=== PATIENT | male | born 1935 | race Caucasian/White ===

== ENCOUNTER → 2024-02-08 | Outpatient (CLI) | payer MEDICARE, SELFPAY ==
--- NOTE | 2024-02-08 13:09 | CT_ITS ---
STUDY: CT ABDOMEN AND PELVIS WITH AND WITHOUT CONTRAST REASON FOR EXAM: Male, 88 years old. HEMATURIA RADIATION DOSAGE (If Supplied By Facility): CTDIvol = ( 26.07 ) mGy, DLP = ( 3759.71 ) mGycm TECHNIQUE: Transaxial images were obtained from the dome of the diaphragm to the symphysis pubis without oral contrast. IV 100mL Isovue-300 was administered. Sagittal and coronal images were reconstructed. Individualized dose optimization techniques were used for this CT. COMPARISON: None. FINDINGS: Increased linear markings in the lingular segment of the left upper lobe suggestive of scarring. Coronary artery calcification. There is decreased attenuation of the liver consistent with steatosis. There are surgical clips in the gallbladder fossa consistent with a prior cholecystectomy. Normal spleen. Normal pancreas. Normal bilateral adrenal glands. Normal right kidney. Normal left kidney. Normal visualized stomach. Normal small intestine. Normal colon. The appendix is visualized and appears normal. There is diffuse atherosclerotic calcification of the abdominal aorta and its major visceral branches, without a demonstrated aneurysm. Normal inferior vena cava. Normal retroperitoneum. There is a 1.5 cm x 1 cm spiculated calculus at the base of the bladder on the right side. There is diffuse bladder wall thickening. Diffuse heterogeneous enlargement of the prostate with indentation of the bladder base. The prostate measures 5.7 cm x 6.7 cm. There is a small umbilical hernia containing fat. There are degenerative changes of the visualized lumbar spine. The general changes of the sacroiliac joints bilaterally. CT/CT Abd/Pelvis W/WO Contrast IMPRESSION: Fatty infiltration of the liver. Status post cholecystectomy. 1.5 cm x 1 cm spiculated focus at the base of the bladder on the right side. Diffuse bladder wall thickening. Diffuse heterogeneous enlargement of the prostate with the indentation at the bladder base. Calcifications are seen in the prostate. Electronically Signed: Asaf Bennett MD at 14:21 EDT ,
[2024-02-08 13:35] LABS: CREATININE FINGERSTICK 1.1 mg/dL (0.70-1.30); EGFR FINGERSTICK > 60.0000 mL/min (>60)
== END | disposition home or self-care (01) ==
LOC: CT 13:08
PROVIDERS: PCP Family Medicine; Referring Provider Urology; Visit Provider Urology
DX: R31.0 Gross hematuria (principal)
CPT/HCPCS: 74178; Q9967

== ENCOUNTER 2024-03-26 09:39 | Day surgery (SDC) | payer MEDICARE, SELFPAY ==
[2024-03-26] VITALS (10 sets, daily range): BP systolic 122–167; BP diastolic 44–58; PULSE 58–78; RESP 14–18; TEMP 36.3–36.6; O2SAT 93–99; BMI 31.9
[2024-03-26] MEDS: Lactated Ringers 1,000 ML 15 ML IV (10:11)
[2024-03-26 10:32] LABS: Bedside Glucose 183 mg/dL (74-106)
--- NOTE | 2024-03-26 10:51 | PRE.ANES_ITS ---
ASA Classification* ASA Classification ASA Classification: 3 Assessment & Plan Anesthesia* Anesthesia Assessment Anesthesia Assessment: Discussed sedation and/or anesthesia options, risks, benefits, and alternatives with patient/parents/legal guardian. Questions invited. The patient/parents/legal guardian/POA seems to understand and agrees to proceed with anesthesia plan. Reviewed the physical assessment, medical history, allergy history and patient home medications list prior to surgery/procedure/anesthetic and documented any changes. Performed airway and anesthesia risk assessments. 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 When Was Last Pacemaker Check QUESTION #4 FULL TEXT: You/Your Family Experience fever (hyperthermia) with Anesthesia Last Oral Intake Last Oral intake: Last Oral Intake NPO since 20:00 03/26/24 10:05 Meds taken in AM with sips of Yes 03/26/24 10:05 water? Meds patient instructed to amlodipine, lisinopril 03/26/24 10:05 take am of surgery PONV PONV - veneer jointer: PONV - veneer jointer Female No 03/21/24 10:55 HX of Motion Sickness No 03/21/24 10:55 HX of N/V After Surgery No 03/21/24 10:55 Non-Smoker Yes 03/21/24 10:55 Duration of Surgery greater Yes 03/21/24 10:55 than 60 minutes Number of Risk Factors 2 03/21/24 10:55 PONV Score Moderate Risk 03/21/24 10:55 Height & Weight Height & Weight: Anesthesia: Height & Weight Height 1.78 m 03/26/24 10:05 Weight: 101 kg 03/26/24 10:05 Body Mass Index (BMI) 31.9 03/26/24 10:05 Respiratory Assessment Respiratory Assessment - veneer jointer: Respiratory Tract Infection Hx - veneer jointer Hx Respiratory Tract Infection No 03/21/24 10:55 STOP Sleep Apnea STOP Sleep Apnea - veneer jointer: STOP Sleep Apnea - veneer jointer Hx Hypertension Yes: CONTROLLED WITH MED 03/21/24 10:55 Hx Sleep Apnea No 03/21/24 10:55 CPAP BIPAP Do you snore loudly (louder No 03/21/24 10:55 than talking or can be heard Do you often feel tired/ No 03/21/24 10:55 fatigued/ sleepy during daytime? Has anyone observed you stop No 03/21/24 10:55 breathing during sleep? STOP Results Negative 03/21/24 10:55 QUESTION #5 FULL TEXT : Do you snore loudly (louder than talking or can be heard through closed doors)? 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 Specify any problems Hx of Preganancy in last 3 N/A 03/21/24 10:55 Months Nurse Filling Out Transfusion DSCHRIBER 03/21/24 10:55 & Questions: Date: 03/21/24 03/21/24 10:55 Time: 10:57 03/21/24 10:55 Patient unable to answer at this time (ie. confused, unrespo /Reproduction History /Reproductive History - veneer jointer: /Reproductive Hx- veneer jointer Hx Now No 03/21/24 10:55 Gestational Age (in weeks): EDC: Hx Hx Para Hx Section SAB No 03/21/24 10:55 Active Medications Active Medications: Current Medications Generic Name Dose Route Start Last Admin Trade Name Marco A PRN Reason Stop Dose Admin Cefazolin Sodium 2 gm/ Sodium 110 mls @ 150 mls/hr 03/26/24 11:40 Chloride IV 03/26/24 12:23 PREOP ONE Lactated Ringer's 1,000 mls @ 15 mls/hr 03/26/24 10:00 03/26/24 10:11 IV 15 mls/hr .Q48H DANIELA Administration Anesthesia Focused Assessment* Temperature: 97.9 F Pulse Rate: 78 Blood Pressure: 157/57 Respiratory Rate: 18 Pulse Ox: 99 Airway Assessment Mouth opens (cm): 3 Mallampati Score: II Focused Labs Anesthesia Preop lab: CBC CHEMISTRY COAG Review of Systems (Anesthesia) ROS Narrative System reviewed and no additional complaints, except as documented. [facility] Medical History Wears hearing aid Wears glasses Alcohol use Diabetes Prostate disease High cholesterol Dietary restriction Shortness of breath on exertion Former smoker Cardiology follow-up encounter Hypertension CAD (coronary artery disease) Home Medications ?Medication ?Instructions ?Recorded ?Last Taken ?Type amlodipine 5 mg tablet 5 mg PO DAILY 03/21/24 03/26/24 History aspirin 81 mg tablet,delayed 81 mg PO DAILY 03/21/24 03/20/24 History release (Adult Aspirin Regimen) atorvastatin 80 mg tablet 80 mg PO QHS 03/21/24 03/25/24 History cyanocobalamin (vitamin B-12) 1,000 mcg PO DAILY 03/21/24 03/25/24 History 1,000 mcg tablet,extended release (Vitamin B-12 ER) dutasteride 0.5 mg capsule 0.5 mg PO DAILY 03/21/24 03/25/24 History glipizide 10 mg tablet 10 mg PO DAILY 03/21/24 03/25/24 History hydrochlorothiazide 25 mg tablet 25 mg PO DAILY 03/21/24 03/25/24 History lisinopril 40 mg tablet 40 mg PO BID 03/21/24 03/26/24 History pioglitazone 15 mg tablet 15 mg PO DAILY 03/21/24 03/25/24 History rivaroxaban 20 mg tablet (Xarelto) 20 mg PO QHS 03/21/24 03/20/24 History sitagliptin phosphate 50 1 tab PO BID 03/21/24 03/25/24 History mg-metformin 1,000 mg tablet (Janumet) tamsulosin 0.4 mg capsule 0.4 mg PO QHS 03/21/24 03/25/24 History Allergy/AdvReac Type Severity Reaction Status Date / Time No Known Allergies Allergy Verified 03/26/24 10:03 Surgical History History of cardiac catheterization Hx of right cataract extraction Hx of left cataract extraction Hx of heart bypass surgery History of umbilical hernia repair Hx of cholecystectomy Social History Smoking Status: Former smoker Addt'l Information Additional Findings: cabg hx, afib hx
[2024-03-26] MEDS: Cefazolin 2 GM in 0.9% Normal Saline (100mL Bag) 100 ML IV (12:12)
--- NOTE | 2024-03-26 12:55 | PCM.HP.STD ---
HPI - General General Date of Service: 03/26/24 Chief Complaint: Large bladder stone HPI Narrative RAY QUINN, is a 88 M who presents to laser large bladder stone he has BPH and obstruction was to start him on medical therapy with Flomax and Proscar he will need to go home with a catheter and follow-up in a week to get catheter removed [facility] Medical History Wears hearing aid Wears glasses Alcohol use Diabetes Prostate disease High cholesterol Dietary restriction Shortness of breath on exertion Former smoker Cardiology follow-up encounter Hypertension CAD (coronary artery disease) Home Medications ?Medication ?Instructions ?Recorded ?Last Taken ?Type amlodipine 5 mg tablet 5 mg PO DAILY 03/21/24 03/26/24 History aspirin 81 mg tablet,delayed 81 mg PO DAILY 03/21/24 03/20/24 History release (Adult Aspirin Regimen) atorvastatin 80 mg tablet 80 mg PO QHS 03/21/24 03/25/24 History cyanocobalamin (vitamin B-12) 1,000 mcg PO DAILY 03/21/24 03/25/24 History 1,000 mcg tablet,extended release (Vitamin B-12 ER) dutasteride 0.5 mg capsule 0.5 mg PO DAILY 03/21/24 03/25/24 History glipizide 10 mg tablet 10 mg PO DAILY 03/21/24 03/25/24 History hydrochlorothiazide 25 mg tablet 25 mg PO DAILY 03/21/24 03/25/24 History lisinopril 40 mg tablet 40 mg PO BID 03/21/24 03/26/24 History pioglitazone 15 mg tablet 15 mg PO DAILY 03/21/24 03/25/24 History rivaroxaban 20 mg tablet (Xarelto) 20 mg PO QHS 03/21/24 03/20/24 History sitagliptin phosphate 50 1 tab PO BID 03/21/24 03/25/24 History mg-metformin 1,000 mg tablet (Janumet) tamsulosin 0.4 mg capsule 0.4 mg PO QHS 03/21/24 03/25/24 History ciprofloxacin HCl 500 mg tablet 500 mg PO BID #6 tabs 03/26/24 Unknown Rx (Cipro) ibuprofen 400 mg tablet 400 mg PO Q6H PRN fever or pain 03/26/24 Unknown Rx #20 tabs Allergy/AdvReac Type Severity Reaction Status Date / Time No Known Allergies Allergy Verified 03/26/24 10:03 Surgical History History of cardiac catheterization Hx of right cataract extraction Hx of left cataract extraction Hx of heart bypass surgery History of umbilical hernia repair Hx of cholecystectomy Social History Smoking Status: Former smoker Vital Signs Vital Signs Vital Signs: 03/26/24 10:05 03/26/24 10:05 03/26/24 10:52 Temperature 97.9 F 97.9 F Temperature Source Temporal Pulse Rate 78 78 Respiratory Rate 18 18 Respiratory Pattern Normal Blood Pressure 157/57 H 157/57 H Blood Pressure Mean 90 Blood Pressure Source Monitor Blood Pressure Position Semi-Fowlers Blood Pressure Location Right Arm Pulse Ox 99 99 Oxygen Delivery Method Room Air Weight Weight: 101 kg Body Mass Index (BMI) 31.9 Results Lab / Micro Data Labs: Laboratory Results - last 24 hr 03/26/24 10:12: POC Glucose 183 H
--- NOTE | 2024-03-26 12:56 | OP.PCM_ITS ---
Report of Operation Date of Procedure: 03/26/24 Pre-Operative Diagnosis: BPH with obstruction large bladder stone Post-Operative Diagnosis: The same Surgery/Procedure Performed:: Cystolitholapaxy of a large bladder stone Description of Surgical Findings:: 88-year-old male was found to have a very large prostate and obstruction restart on the medical therapy with Flomax and Proscar he understand this possibly may need a TURP down the road poses a large stone in the bladder and plan to laser out the stone as it is causing him frequency and urgency symptoms. Patient was taken back to the operating room at this with induction of anesthes ia he was placed in dorsolithotomy position. Penis and testicles prepped and draped in usual sterile fashion in the bladder with a 21 [place] rigid cystourethroscope I got to the verumontanum and a nice channel no strictures or scar tissue along the channel past the prostate had a very large prostate large median lobe inside the bladder I then identified a large stone in the bladder I then used a 900 ?m laser fiber laser the stone little tiny pieces using as careful as possible not to irritate the bladder but the stone was so big as as lasering it because a lot of bleeding from the bladder neck so at the end of lasering the bladder and get all the stones put in the catheter he will to go home with a catheter let the to control the bleeding and follow-up next week to have the catheter removed. Surgeon: Gerald Verduzco Type of Anesthesia: General Drains: cornelius Estimated Blood Loss (mL): 0 Admit VTE Documentation VTE Present on Admission: No VTE Mechan Device Prophylaxis: SCD's VTE Pharm Prophylaxis ordered?: No
--- NOTE | 2024-03-26 12:56 | PCM.DC ---
Discharge Instructions Diet Discharge Diet: No restrictions Activity Discharge Activity: Return to Normal Activity Dressing / Incision Catheter: Cornelius to leg bag and Cornelius to large bag Drain: [place] Follow Up Care Please Follow Up With: Gerald Verduzco MD When: next week to remove cornelius Test Results: Test results from this visit will be discussed in further detail at your follow-up appointment, if applicable. Discharge Plan Admission Primary Reason for Your Visit: Laser bladder stone Attending Provider: Gerald Verduzco Primary Care Provider: Keshav Hernández Instructions Print Language: Rw[place] Discharge Orders/Prescriptions Prescriptions: New ciprofloxacin HCl [Cipro] 500 mg tablet 500 mg PO BID Qty: 6 0RF ibuprofen 400 mg tablet 400 mg PO Q6H PRN (Reason: fever or pain) Qty: 20 0RF Continued amlodipine 5 mg tablet 5 mg PO DAILY atorvastatin 80 mg tablet 80 mg PO QHS glipizide 10 mg tablet 10 mg PO DAILY hydrochlorothiazide 25 mg tablet 25 mg PO DAILY lisinopril 40 mg tablet 40 mg PO BID pioglitazone 15 mg tablet 15 mg PO DAILY Janumet 50-1,000 mg tablet 1 tab PO BID cyanocobalamin (vitamin B-12) [Vitamin B-12] 1,000 mcg tablet extended release 1,000 mcg PO DAILY dutasteride 0.5 mg capsule 0.5 mg PO DAILY tamsulosin 0.4 mg capsule 0.4 mg PO QHS Held Xarelto 20 mg tablet 20 mg PO QHS Hold Instructions: Resume on 04/02/24. aspirin [Adult Aspirin Regimen] 81 mg tablet,delayed release (DR/EC) 81 mg PO DAILY Hold Instructions: Resume on 04/02/24. Referrals / Follow Up: Keshav Hernández MD [Primary Care Provider] - Disposition Disposition (needs filled in before D/C Order can be placed): Home, Self Care
--- NOTE | 2024-03-26 13:04 | PCM.POST.ANE ---
Anesthesia: Postop Eval I Current Vital Signs Temperature: 97.4 F Pulse Rate: 63 Blood Pressure: 140/52 Respiratory Rate: 16 Pulse Ox: 95 Oxygen Delivery Method: Room Air Assessment Airway patent: Yes Spontaneous unlabored respirations: Yes Mental status: Awake and Calm nausea: No Vomiting: No Anesthesia Complication: No Fluid Hydration Crystalloid volume administer (ml): 8,003 Total IV fluid infused: 8,003 Progress Note Anesthesia document: Postop Eval 1 completed: Yes
[2024-03-26 13:23] LABS: Bedside Glucose 154 mg/dL (74-106)
--- NOTE | 2024-03-26 13:46 | POSTOPAN2_ITS ---
Anesthesia Postop Eval I Sum Postop Eval Completion status Anesthesia document: Postop Eval 1 completed: Yes Anesthesia Postop Eval I Summary Anesthesia Postop Eval I Summary: Anesthesia Postop Eval I: Assessment Summary Airway patent Yes 03/26/24 13:05 COPIER REPAIR TECHNICIAN.[email or web address] Spontaneous unlabored Yes 03/26/24 13:05 COPIER REPAIR TECHNICIAN.SCHR respirations Mental status Awake,Calm 03/26/24 13:05 COPIER REPAIR TECHNICIAN.SCHR nausea No 03/26/24 13:05 COPIER REPAIR TECHNICIAN.SCHR Vomiting No 03/26/24 13:05 COPIER REPAIR TECHNICIAN.[facility] Anesthesia Postop Eval I: Fluid Summary Crystalloid volume administer 8,003 03/26/24 13:05 COPIER REPAIR TECHNICIAN.SCHR (ml) Colloids volume administered ( ml) Blood Product volume administered (ml) Total IV fluid infused 8,003 03/26/24 13:05 COPIER REPAIR TECHNICIAN.[facility] Anesthesia Postop Eval I: Summary Notes Anesthesia Complication No 03/26/24 13:05 COPIER REPAIR TECHNICIAN.[facility] Anesthesia Complication Comment: Post-operative progress note Anesthesia: Postop Eval II Evaluation Mental status: Awake Pain Level: 6 nausea: No Vomiting: No Progress Note Post-operative progress note: somewhat painful, anxious added ativan for anxiety Complications Anesthesia Complication: No
--- NOTE | 2024-03-26 13:46 | PCM.POSTANE2 ---
Anesthesia Postop Eval I Sum Postop Eval Completion status Anesthesia document: Postop Eval 1 completed: Yes Anesthesia Postop Eval I Summary Anesthesia Postop Eval I Summary: Anesthesia Postop Eval I: Assessment Summary Airway patent Yes 03/26/24 13:05 MARBLE CUTTER OPERATOR.SCHR Spontaneous unlabored Yes 03/26/24 13:05 MARBLE CUTTER OPERATOR.SCHR respirations Mental status Awake,Calm 03/26/24 13:05 MARBLE CUTTER OPERATOR.SCHR nausea No 03/26/24 13:05 MARBLE CUTTER OPERATOR.SCHR Vomiting No 03/26/24 13:05 MARBLE CUTTER OPERATOR.[facility] Anesthesia Postop Eval I: Fluid Summary Crystalloid volume administer 8,003 03/26/24 13:05 MARBLE CUTTER OPERATOR.SCHR (ml) Colloids volume administered ( ml) Blood Product volume administered (ml) Total IV fluid infused 8,003 03/26/24 13:05 MARBLE CUTTER OPERATOR.[facility] Anesthesia Postop Eval I: Summary Notes Anesthesia Complication No 03/26/24 13:05 MARBLE CUTTER OPERATOR.[facility] Anesthesia Complication Comment: Post-operative progress note Anesthesia: Postop Eval II Evaluation Mental status: Awake Pain Level: 6 nausea: No Vomiting: No Progress Note Post-operative progress note: somewhat painful, anxious added ativan for anxiety Complications Anesthesia Complication: No
== END 2024-03-26 15:15 | disposition home or self-care (01) ==
LOC: SDC 09:41 → AC 09:42
PROVIDERS: PCP Family Medicine; Referring Provider Urology; Visit Provider Urology
PROC: (CPT 52318; principal; 2024-03-26 11:30)
DX: N21.0 Calculus in bladder (principal); E11.9 Type 2 diabetes mellitus without complications; N40.1 Benign prostatic hyperplasia with lower urinary tract symptoms; E78.00 Pure hypercholesterolemia, unspecified; Z79.82 Long term (current) use of aspirin; I25.10 Atherosclerotic heart disease of native coronary artery without angina pectoris; I10 Essential (primary) hypertension; Z79.84 Long term (current) use of oral hypoglycemic drugs; Z87.891 Personal history of nicotine dependence; Z79.01 Long term (current) use of anticoagulants; R97.20 Elevated prostate specific antigen [PSA]; Z95.1 Presence of aortocoronary bypass graft; Z90.49 Acquired absence of other specified parts of digestive tract
CPT/HCPCS: 52318; 00910; J7120; 82962; J2405

== ENCOUNTER 2024-03-27 17:09 | Emergency (ER) | payer MEDICARE, SELFPAY ==
[2024-03-27 17:10] VITALS: BP 116/51; PULSE 87; RESP 16; TEMP 36.4; O2SAT 96; BMI 30.9
--- NOTE | 2024-03-27 17:23 | EDS_ITS ---
HPI <MACEY Robert - Last Filed: 03/27/24 20:57> History of Present Illness Chief Complaint: Xiong C/O Narrative Narrative: Patient is a 88-year-old male with history of hypertension hyperlipidemia on Xarelto who recently had stones in his bladder removed yesterday here at the hospital. Patient now has an 18 Polish Xiong catheter placed. Patient states since that time, he has been having leaking around the catheter. He has had nothing but blood in his catheter. Patient did restart his Xarelto yesterday. Patient denies any specific pain, fever or chills, he did call the urologist office who referred him to the emergency department. FORMERLY [facility], [facility]–1983 <MACEY Robert - Last Filed: 03/27/24 20:57> FORMERLY [facility], [facility] Medical History Wears hearing aid Wears glasses Alcohol use Diabetes Prostate disease High cholesterol Dietary restriction Shortness of breath on exertion Former smoker Cardiology follow-up encounter Hypertension CAD (coronary artery disease) Home Medications ?Medication ?Instructions ?Recorded ?Last Taken ?Type amlodipine 5 mg tablet 5 mg PO DAILY 03/21/24 03/26/24 History aspirin 81 mg tablet,delayed 81 mg PO DAILY 03/21/24 03/20/24 History release (Adult Aspirin Regimen) atorvastatin 80 mg tablet 80 mg PO QHS 03/21/24 03/25/24 History cyanocobalamin (vitamin B-12) 1,000 mcg PO DAILY 03/21/24 03/25/24 History 1,000 mcg tablet,extended release (Vitamin B-12 ER) dutasteride 0.5 mg capsule 0.5 mg PO DAILY 03/21/24 03/25/24 History glipizide 10 mg tablet 10 mg PO DAILY 03/21/24 03/25/24 History hydrochlorothiazide 25 mg tablet 25 mg PO DAILY 03/21/24 03/25/24 History lisinopril 40 mg tablet 40 mg PO BID 03/21/24 03/26/24 History pioglitazone 15 mg tablet 15 mg PO DAILY 03/21/24 03/25/24 History rivaroxaban 20 mg tablet (Xarelto) 20 mg PO QHS 03/21/24 03/20/24 History sitagliptin phosphate 50 1 tab PO BID 03/21/24 03/25/24 History mg-metformin 1,000 mg tablet (Janumet) tamsulosin 0.4 mg capsule 0.4 mg PO QHS 03/21/24 03/25/24 History ciprofloxacin HCl 500 mg tablet 500 mg PO BID #6 tabs 03/26/24 Unknown Rx (Cipro) ibuprofen 400 mg tablet 400 mg PO Q6H PRN fever or pain 03/26/24 Unknown Rx #20 tabs Allergy/AdvReac Type Severity Reaction Status Date / Time No Known Allergies Allergy Verified 03/27/24 17:11 Surgical History History of cardiac catheterization Hx of right cataract extraction Hx of left cataract extraction Hx of heart bypass surgery History of umbilical hernia repair Hx of cholecystectomy Social History Smoking Status: Former smoker ROS <MACEY Robert - Last Filed: 03/27/24 20:57> ROS ED ROS Narrative Constitutional: Negative for fever, chills, weight loss, weakness Eyes: Negative for vision loss, vision change, double vision ENT: Negative for any sore throat, ear pain, congestion Cardiovascular: Negative for any chest pain, tightness, palpitations Respiratory: Negative for any cough, sputum production, hemoptysis, dyspnea, dyspnea on exertion, orthopnea Gastrointestinal: Negative for any abdominal pain, nausea, vomiting, diarrhea, constipation, blood in stool, blood in vomit : Negative for any urinary frequency, dysuria, retention. positive for hematuria, Xiong catheter leaking Muscle skeletal: Negative for any neck pain, back pain Neurological: Negative for any headache, syncope, dizziness Skin: Negative for any rashes, itching, abrasions, lacerations Psychiatric: Negative for any depression, anxiety, stress, suicidal ideation, homicidal ideation Hematologic: Negative for any excessive bruising, easy bleeding EXAM <MACEY Robert - Last Filed: 03/27/24 20:57> Physical Exam Narrative Exam Narrative: Vital signs reviewed. HEET: Head normocephalic atraumatic, TMs clear bilaterally. Posterior pharynx is clear, moist mucous membranes. Nares clear bilaterally. Neck: Supple with no lymphadenopathy or tenderness. No signs of meningismus. Cardiac: Regular rate and rhythm no murmurs gallops or rubs, equal peripheral pulses bilaterally. Respiratory: Lungs clear to auscultation bilaterally. No chest tenderness. Abdomen: Soft, nontender, nondistended. No abdominal bruit or pulsatile masses. No hepatosplenomegaly Extremities: No peripheral edema, no signs of gross trauma or deformity. Active full range of motion of all extremities. Neuro: Cranial nerves II through XII intact, no focal neurological deficits. Skin: Clean dry and intact with no rash, purpura, petechiae, vesicles or pustules. Backs/flank: No CVA tenderness, no midline spinal tenderness, no deformity. Psych: Normal mood and affect. No SI, HI or acute psychosis. : Patient has an 18 Polish Xiong catheter, the bag is empty except for haleigh bleeding in the bag and in the tube. Do not see any clots. On my examination, the balloon seems to be inflated. Const Vital Signs: 03/27/24 17:10 Temperature 97.5 F L Temperature Source Temporal Pulse Rate 87 Respiratory Rate 16 Blood Pressure 116/51 L Blood Pressure Mean 72 Pulse Ox 96 <Dr. Torrey Alvarado MD - Last Filed: 03/27/24 20:57> Physical Exam Const Vital Signs: 03/27/24 17:10 Temperature 97.5 F L Temperature Source Temporal Pulse Rate 87 Respiratory Rate 16 Blood Pressure 116/51 L Blood Pressure Mean 72 Pulse Ox 96 MDM <MACEY Robert - Last Filed: 03/27/24 20:57> [facility] Lab Data Labs: Laboratory Results - last 24 hr 03/27/24 03/27/24 17:50 18:18 WBC 12.8 H RBC 3.40 L Hgb 10.6 L Hct 31.4 L MCV 92.4 MCH 31.2 MCHC 33.8 RDW Std Deviation 40.5 RDW Coeff of Jessica 12.0 Plt Count 225 MPV 10.0 Immature Gran % (Auto) 0.900 Neut % (Auto) 85.0 H Lymph % (Auto) 6.2 L [place] % (Auto) 7.4 Eos % (Auto) 0.2 Baso % (Auto) 0.3 Absolute Neuts (auto) 10.9 H Absolute Lymphs (auto) 0.79 L Nucleated RBC % 0 Sodium 137 Potassium 4.1 Chloride 104 Carbon Dioxide 26.0 Anion Gap 7 BUN 29 H Creatinine 1.54 H Estim Creat Clear Calc 40.08 Est GFR (MDRD) Af Amer 55 L Est GFR (MDRD) Non-Af 45 L BUN/Creatinine Ratio 18.8 Glucose 154 H Calcium 9.1 Urine Color Red Urine Clarity Turbid Urine pH 6.5 Ur Specific [place] 1.010 Urine Protein 500 H Urine Glucose (UA) Normal Urine Ketones 5 H Urine Occult Blood 250 H Urine Nitrite Negative Urine Bilirubin Negative Urine Urobilinogen Normal Ur Leukocyte Esterase 25 H Urine RBC > 100 SEEN Urine WBC 0-5 SEEN Ur Squamous Epith Cells 0-5 SEEN Amorphous Sediment 1+ URATE Urine Bacteria RARE Urine Mucus 0 SEEN Treatment and Re-Evaluation :: Differential diagnosis includes however is not limited to: Xiong catheter blockage secondary to blood clot, hematuria, Xiong catheter malfunction, UTI Patient appears to be in no obvious distress vital signs are stable, patient appears nontoxic. Presenting to the emergency department with complaints of hematuria, urine going around the Xiong catheter. The balloon appears to be intact. I do see slight leakage around the tip of the penis. I did pull the catheter slightly, the balloon appears to be intact. The nurse will manually irrigate the catheter to see if there is some sort of a blockage. In the Xiong catheter is haleigh blood mixed with some urine. Do not see any significant blood clots. I spoke with the patient, I recommended the patient receive a larger Polish Xiong, patient refused. Patient states he would like to have this 1 irrigated more to see if it will become more clear. Patient received basic labs which is CBC BMP, urinalysis. Patient CBC shows slight leukocytosis white blood count 12.8, hemoglobin 10.6. Patient's chemistries do show slight bump in creatinine 1.54, patient glucose 154 was normal. Urinalysis was negative for gross infection he is currently on Cipro. Patient after speaking with him regarding the Xiong catheter, I do believe the patient be best suited to have a 22 Polish Xiong catheter. This will be placed. I do believe the patient to be discharged home, patient will have this irrigated until clear. He will follow-up with on Sunday. Patient is happy with the plan of care, stable for discharge. <Dr. Torrey Alvarado MD - Last Filed: 03/27/24 20:57> [facility] Narrative Medical decision making narrative: I have personally performed a face to face assessment of the patient and have reviewed the SHIRA Note. I performed a substantive portion of the visit including all aspects of the following. My barnett findings include: History is 88-year-old male status post bladder stone procedure done by Dr. Ellis Verduzco. Patient has an 18 Polish Xiong catheter in. He has noticed gross blood. Today the catheter was not draining. He denies other complaints. He is on the antibiotic Cipro 1 pill twice a day for 3 days. Patient is also on the blood thinner Xarelto. Exam is [well-appearing 88-year-old male. Vital signs stable afebrile. H EENT exam unremarkable. Lungs clear. Heart regular rhythm rate about 85 no murmur. Chest wall and ribs nontender. Abdomen soft nontender. Bladder is not tender or distended. He has an 18 Polish Xiong catheter in. There is gross blood in it. Currently it is draining. It was irrigated by nursing. Patient moving all 4 extremities. Nontender no edema.] Medical Decision Making [80-year-old male status post bladder stone procedure with gross hematuria on the blood thinner Xarelto. Discussed with patient gave him options initially did not want the Xiong changed to a 22 I explained to him that the smaller catheter make it clotted off and its once happened today. He decided to have the Xiong catheter changed. We did screening labs. His white count is 12.8. H&H of 10.6 and 31. His prior most recent hemoglobin down to [facility] was 13.4 about 9 months ago. Platelet count 225. Electrolytes unremarkable. BUN 29 creatinine 1.54. His most recent creatinine at the [facility] done in around September was normal. Glucose 154. UA shows 250 occult blood. No nitrites. Gross hematuria on exam. Xiong catheter will be changed to a 22 Polish. Irrigated. He has appointment to follow-up with his urologist Dr. Ellis Verduzco on Sunday.] Other additions or changes: [None] Lab Data Labs: Laboratory Results - last 24 hr 03/27/24 03/27/24 17:50 18:18 WBC 12.8 H RBC 3.40 L Hgb 10.6 L Hct 31.4 L MCV 92.4 MCH 31.2 MCHC 33.8 RDW Std Deviation 40.5 RDW Coeff of Jessica 12.0 Plt Count 225 MPV 10.0 Immature Gran % (Auto) 0.900 Neut % (Auto) 85.0 H Lymph % (Auto) 6.2 L [place] % (Auto) 7.4 Eos % (Auto) 0.2 Baso % (Auto) 0.3 Absolute Neuts (auto) 10.9 H Absolute Lymphs (auto) 0.79 L Nucleated RBC % 0 Sodium 137 Potassium 4.1 Chloride 104 Carbon Dioxide 26.0 Anion Gap 7 BUN 29 H Creatinine 1.54 H Estim Creat Clear Calc 40.08 Est GFR (MDRD) Af Amer 55 L Est GFR (MDRD) Non-Af 45 L BUN/Creatinine Ratio 18.8 Glucose 154 H Calcium 9.1 Urine Color Red Urine Clarity Turbid Urine pH 6.5 Ur Specific [place] 1.010 Urine Protein 500 H Urine Glucose (UA) Normal Urine Ketones 5 H Urine Occult Blood 250 H Urine Nitrite Negative Urine Bilirubin Negative Urine Urobilinogen Normal Ur Leukocyte Esterase 25 H Urine RBC > 100 SEEN Urine WBC 0-5 SEEN Ur Squamous Epith Cells 0-5 SEEN Amorphous Sediment 1+ URATE Urine Bacteria RARE Urine Mucus 0 SEEN Discharge Plan Triage Chief Complaint: Xiong C/O ED Midlevel Provider: Chepe Roldan ED Provider: Torrey Alvarado Dx/Rx/DC Orders Clinical Impression: Gross hematuria, Obstructed Xiong catheter, History of bladder stone, Chronic anticoagulation, Anemia Instructions: Hematuria: Possible Causes, ED Xiong Catheter, Care Prescriptions: No Action amlodipine 5 mg tablet 5 mg PO DAILY atorvastatin 80 mg tablet 80 mg PO QHS glipizide 10 mg tablet 10 mg PO DAILY hydrochlorothiazide 25 mg tablet 25 mg PO DAILY lisinopril 40 mg tablet 40 mg PO BID pioglitazone 15 mg tablet 15 mg PO DAILY Xarelto 20 mg tablet 20 mg PO QHS Janumet 50-1,000 mg tablet 1 tab PO BID aspirin [Adult Aspirin Regimen] 81 mg tablet,delayed release (DR/EC) 81 mg PO DAILY cyanocobalamin (vitamin B-12) [Vitamin B-12] 1,000 mcg tablet extended release 1,000 mcg PO DAILY dutasteride 0.5 mg capsule 0.5 mg PO DAILY tamsulosin 0.4 mg capsule 0.4 mg PO QHS ciprofloxacin HCl [Cipro] 500 mg tablet 500 mg PO BID Qty: 6 0RF ibuprofen 400 mg tablet 400 mg PO Q6H PRN (Reason: fever or pain) Qty: 20 0RF Primary Care Provider: Keshav Hernández Referrals: Keshav Hernández MD [Primary Care Provider] - Gerald Verduzco MD [Med Staff - Active Staff] - Keep Meoldy appointment (Keep scheduled appointment for Sunday.) Activity Restrictions/Additional Instructions: Plenty of fluids. Return if the catheter is not draining gets clogged by blood clots. Follow-up with your urologist, Dr. Ellis Verduzco on Sunday. Print Language: French Disposition Disposition: Home, Self Care Discharge Date/Time: 03/27/24 20:38
[2024-03-27 18:01] LABS: Absolute Lymphocyte Count 0.79 X10^3/uL (0.83-4.51); Absolute Neutrophil Count 10.9 X10^3/uL (2.0-7.7); Basophil# 0.04 X10^3/uL; Basophil% 0.3 % (0-1); Eosinophil# 0.03 X10^3/uL; Eosinophils% 0.2 % (0-5); Hematocrit 31.4 % (40-54); Hemoglobin 10.6 g/dL (13.0-16.5); Lymphocyte # 0.79 X10^3/ul (0.83-4.51); Lymphocyte % 6.2 % (19-41); Mean Corp Hgb Conc 33.8 g/dL (32-36); Mean Corpuscular Hgb 31.2 pg (27.0-32.0); Mean Corpuscular Volume 92.4 fL (80-94); Monocyte# 0.95 X10^3/uL; Monocyte% 7.4 % (0-10); NRBC Flagged by Analyzer 0 % (0-5); Neutrophil # 10.91 X10^3/uL (2.7-7.7); Platelet Count 225 K/mm3 (150-450); RBC Distribution Width SD 40.5 fl (35.1-43.9); White Blood Count 12.8 K/mm3 (4.4-11.0)
[2024-03-27 18:24] LABS: Mucous, Urine 0 SEEN /hpf (<or=2+)
[2024-03-27 18:26] LABS: Color, Urine Red (Yellow); Glucose, Dipstick Normal (Normal); Ketone-Dipstick 5 mg/dl (Negative); Leukocyte Esterase-Dipstick 25 /ul (Negative); Nitrite-Dipstick Negative (Negative); Occult Blood-Urine 250 /ul (Negative); Protein-Dipstick 500 mg/dl (Negative); Urine Bilirubin Dipstick Negative (Negative); Urine Clarity Turbid (Clear); Urine Urobilinogen Normal (Normal); Urine pH 6.5 (5.0 - 8.0)
[2024-03-27 18:32] LABS: Anion Gap 7 (5-15); BUN 29 mg/dL (7-18); BUN/Creat Ratio 18.8 RATIO (10-20); Calcium,Total 9.1 mg/dL (8.5-10.1); Chloride 104 mmol/L (98-107); Creatinine, Serum 1.54 mg/dL (0.70-1.30); EST Glomerular Filtration Rate 45 mL/min (>60); Est Glom Filt Rate - Afr Amer 55 mL/min (>60); Estimated Creatinine Clearance 40.08 ml/min; Glucose 154 mg/dL (74-106); Potassium 4.1 mmol/L (3.5-5.1); Sodium Level 137 mmol/L (136-145)
[2024-03-27 18:39] LABS: White Blood Cells 0-5 SEEN /hpf (0-5)
[2024-03-27 18:40] LABS: Amorphous Sediment 1+ URATE; Bacteria RARE /hpf (None Seen); Red Blood Cells-Urine > 100 SEEN /hpf (0-5); Squamous Epithelial Cells - UA 0-5 SEEN /hpf (0-5)
[2024-03-27] MEDS: Lidocaine Jelly 2% 20 ML Syringe (URO-JET) 1 APPLIC TOPICAL (18:59)
== END 2024-03-27 20:38 | disposition home or self-care (01) ==
PROVIDERS: Nurse Practitioner; Emergency Provider Emergency Medicine; PCP Family Medicine; Visit Provider Emergency Medicine
DX: R31.0 Gross hematuria (principal); E11.9 Type 2 diabetes mellitus without complications; Z87.891 Personal history of nicotine dependence; T83.091A Other mechanical complication of indwelling urethral catheter, initial encounter; Z79.01 Long term (current) use of anticoagulants; I10 Essential (primary) hypertension; E78.00 Pure hypercholesterolemia, unspecified; I25.10 Atherosclerotic heart disease of native coronary artery without angina pectoris; Z79.899 Other long term (current) drug therapy; Z79.84 Long term (current) use of oral hypoglycemic drugs; Z79.82 Long term (current) use of aspirin; Z98.41 Cataract extraction status, right eye; Z90.49 Acquired absence of other specified parts of digestive tract; Z98.42 Cataract extraction status, left eye; D64.9 Anemia, unspecified; Z87.448 Personal history of other diseases of urinary system
CPT/HCPCS: 99282; 80048; 81001; 85025

== ENCOUNTER 2024-03-28 05:45 | Observation (INO) | payer MEDICARE, SELFPAY ==
[2024-03-28] VITALS (8 sets, daily range): BP systolic 110–188; BP diastolic 43–82; PULSE 74–89; RESP 16–20; TEMP 35.9–37.1; O2SAT 92–99; BMI 31.7
--- NOTE | 2024-03-28 07:10 | EDS_ITS ---
HPI History of Present Illness Chief Complaint: Xiong C/O Informant: patient Narrative Narrative: Patient is an 88-year-old male with past medical history of hypertension [id number] diabetes and hyperlipidemia currently on Xarelto. However he states he does not know why he is on the anticoagulation. He was seen yesterday as his Xiong catheter had stopped draining and after irrigation it produced blood-tinged urine. Labs were obtained which revealed mild anemia but no signs of acute kidney injury or need for blood transfusion. Patient states that since being discharged he noticed that the urine was not draining throughout the night into this morning and secondary to this presents for reevaluation [facility] Medical History Wears hearing aid Wears glasses Alcohol use Diabetes Prostate disease High cholesterol Dietary restriction Shortness of breath on exertion Former smoker Cardiology follow-up encounter Hypertension CAD (coronary artery disease) Home Medications ?Medication ?Instructions ?Recorded ?Last Taken ?Type amlodipine 5 mg tablet 5 mg PO DAILY 03/21/24 03/26/24 History aspirin 81 mg tablet,delayed 81 mg PO DAILY 03/21/24 03/20/24 History release (Adult Aspirin Regimen) atorvastatin 80 mg tablet 80 mg PO QHS 03/21/24 03/25/24 History cyanocobalamin (vitamin B-12) 1,000 mcg PO DAILY 03/21/24 03/25/24 History 1,000 mcg tablet,extended release (Vitamin B-12 ER) dutasteride 0.5 mg capsule 0.5 mg PO DAILY 03/21/24 03/25/24 History glipizide 10 mg tablet 10 mg PO DAILY 03/21/24 03/25/24 History hydrochlorothiazide 25 mg tablet 25 mg PO DAILY 03/21/24 03/25/24 History lisinopril 40 mg tablet 40 mg PO BID 03/21/24 03/26/24 History pioglitazone 15 mg tablet 15 mg PO DAILY 03/21/24 03/25/24 History rivaroxaban 20 mg tablet (Xarelto) 20 mg PO QHS 03/21/24 03/20/24 History sitagliptin phosphate 50 1 tab PO BID 03/21/24 03/25/24 History mg-metformin 1,000 mg tablet (Janumet) tamsulosin 0.4 mg capsule 0.4 mg PO QHS 03/21/24 03/25/24 History ciprofloxacin HCl 500 mg tablet 500 mg PO BID #6 tabs 03/26/24 Unknown Rx (Cipro) ibuprofen 400 mg tablet 400 mg PO Q6H PRN fever or pain 03/26/24 Unknown Rx #20 tabs Allergy/AdvReac Type Severity Reaction Status Date / Time No Known Allergies Allergy Verified 03/28/24 05:51 Surgical History History of cardiac catheterization Hx of right cataract extraction Hx of left cataract extraction Hx of heart bypass surgery History of umbilical hernia repair Hx of cholecystectomy Social History Smoking Status: Former smoker ROS ROS ED Constitutional Constitutional ED: Denies chills or fever(s) ENT ENT ED: Denies sore throat Cardiovascular Cardiovascular: Denies chest pain Respiratory/Chest Respiratory/Chest: Denies cough or dyspnea Gastrointestinal Gastrointestinal: Reports abdominal pain; Denies diarrhea, nausea or vomiting Genitourinary Genitourinary ED: Reports hematuria; Denies dysuria Musculoskeletal Musculoskeletal: Denies myalgias Integumentary Denies rash Neurologic Neurologic: Denies headache(s) Hematologic/Lymphatic Hematologic/Lymphatic: Reports easy bleeding and easy bruising EXAM Physical Exam Const Vital Signs: 03/28/24 05:46 Temperature 96.7 F L Temperature Source Temporal Pulse Rate 77 Respiratory Rate 16 Blood Pressure 161/44 H Blood Pressure Mean 83 Pulse Ox 98 Oxygen Delivery Method Room Air Positive well nourished and well developed General Appearance ED: well developed; Negative for pallor HEENT HEENT Narrative: Normocephalic atraumatic Eyes PERRL and EOMs intact bilaterally General Eye ED: Yes pale conjunctiva; Negative for scleral icterus Neck supple Resp normal respiratory effort and clear to auscultation bilaterally Cardio regular rate and regular rhythm GI normal to inspection, nondistended, normoactive bowel sounds, non-tender, non- distended and no masses GI Narrative: No organomegaly noted to suggest acute urinary retention No peritoneal signs voluntary guarding or rigidity or pulsatile mass Auscultation: normoactive bowel sounds Palpation: soft Narrative: Xiong catheter in place draining blood-tinged urine with multiple clots Back/Spine no CVA tenderness Extremity normal to inspection Neuro oriented x3, CN's II-XII intact bilaterally and no sensory deficits noted Sensorium / Orientation: alert Psych mental status grossly normal Skin no rashes or lesions noted General Skin Exam: Negative for jaundice or pallor MDM MDM MDM Narrative Medical decision making narrative: Patient arrived to the ER hypertensive but otherwise with stable vitals. He had lab work done roughly 12 hours ago and therefore I felt no need to repeat at t his time. However as he reported that his catheter was no longer draining we performed piston irrigation and there was expression of multiple blood clots and then the return of blood-tinged urine. As he is on Xarelto and has had the Xiong catheter clot off twice in 24 hours continuous bladder irrigation will be applied. Following CBI if patient still has hematuria and passage of clots he may need admitted to the hospital which at that time we can contact his urologist Dr. Verduzco to discuss possible admission. 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, Hypertension, Benign prostatic hyperplasia Prescriptions: No Action amlodipine 5 mg tablet 5 mg PO DAILY atorvastatin 80 mg tablet 80 mg PO QHS glipizide 10 mg tablet 10 mg PO DAILY hydrochlorothiazide 25 mg tablet 25 mg PO DAILY lisinopril 40 mg tablet 40 mg PO BID pioglitazone 15 mg tablet 15 mg PO DAILY Xarelto 20 mg tablet 20 mg PO QHS Janumet 50-1,000 mg tablet 1 tab PO BID aspirin [Adult Aspirin Regimen] 81 mg tablet,delayed release (DR/EC) 81 mg PO DAILY cyanocobalamin (vitamin B-12) [Vitamin B-12] 1,000 mcg tablet extended release 1,000 mcg PO DAILY dutasteride 0.5 mg capsule 0.5 mg PO DAILY tamsulosin 0.4 mg capsule 0.4 mg PO QHS ciprofloxacin HCl [Cipro] 500 mg tablet 500 mg PO BID Qty: 6 0RF ibuprofen 400 mg tablet 400 mg PO Q6H PRN (Reason: fever or pain) Qty: 20 0RF Primary Care Provider: Keshav Hernández Referrals: Keshav Hernández MD [Primary Care Provider] - Print Language: Luxembourgish
--- NOTE | 2024-03-28 07:52 | NURSING ---
MED SURG OBS ANA HEMATURIA
[2024-03-28 08:02] LABS: Absolute Lymphocyte Count 0.59 X10^3/uL (0.83-4.51); Absolute Neutrophil Count 12.7 X10^3/uL (2.0-7.7); Basophil# 0.04 X10^3/uL; Basophil% 0.3 % (0-1); Eosinophil# 0.01 X10^3/uL; Eosinophils% 0.1 % (0-5); Hematocrit 30.2 % (40-54); Lymphocyte # 0.59 X10^3/ul (0.83-4.51); Lymphocyte % 4.1 % (19-41); Mean Corp Hgb Conc 33.1 g/dL (32-36); Mean Corpuscular Hgb 31.3 pg (27.0-32.0); Mean Corpuscular Volume 94.4 fL (80-94); Mean Platelet Vol. 10.1 fl (6.2-12.0); Monocyte# 0.92 X10^3/uL; Monocyte% 6.4 % (0-10); NRBC Flagged by Analyzer 0 % (0-5); Neutrophil # 12.69 X10^3/uL (2.7-7.7); Neutrophil % 88.5 % (47-70); POSITIVE DIFFERENTIAL YES; Platelet Count 214 K/mm3 (150-450); RBC Distribution Width CV 12.1 % (11.6-14.6); White Blood Count 14.3 K/mm3 (4.4-11.0)
[2024-03-28 08:17] LABS: Anion Gap 8 (5-15); BUN 33 mg/dL (7-18); Calcium,Total 8.9 mg/dL (8.5-10.1); Chloride 103 mmol/L (98-107); Creatinine, Serum 1.74 mg/dL (0.70-1.30); EST Glomerular Filtration Rate 40 mL/min (>60); Est Glom Filt Rate - Afr Amer 48 mL/min (>60); Glucose 209 mg/dL (74-106); Potassium 4.5 mmol/L (3.5-5.1); Sodium Level 136 mmol/L (136-145)
--- NOTE | 2024-03-28 08:18 | HP.PCM_ITS ---
HPI - General General Date of Admission: 03/28/24 Date of Service: 03/28/24 Chief Complaint: bleeding HPI Narrative RAY QUINN, is a 88 M who presents with bleeding v large prostate s/p laser of v large bladder stone. admit take to surgery to stop bleeding today, TURP. [facility] Medical History Wears hearing aid Wears glasses Alcohol use Diabetes Prostate disease High cholesterol Dietary restriction Shortness of breath on exertion Former smoker Cardiology follow-up encounter Hypertension CAD (coronary artery disease) Home Medications ?Medication ?Instructions ?Recorded ?Last Taken ?Type amlodipine 5 mg tablet 5 mg PO DAILY 03/21/24 03/26/24 History aspirin 81 mg tablet,delayed 81 mg PO DAILY 03/21/24 03/20/24 History release (Adult Aspirin Regimen) atorvastatin 80 mg tablet 80 mg PO QHS 03/21/24 03/25/24 History cyanocobalamin (vitamin B-12) 1,000 mcg PO DAILY 03/21/24 03/25/24 History 1,000 mcg tablet,extended release (Vitamin B-12 ER) dutasteride 0.5 mg capsule 0.5 mg PO DAILY 03/21/24 03/25/24 History glipizide 10 mg tablet 10 mg PO DAILY 03/21/24 03/25/24 History hydrochlorothiazide 25 mg tablet 25 mg PO DAILY 03/21/24 03/25/24 History lisinopril 40 mg tablet 40 mg PO BID 03/21/24 03/26/24 History pioglitazone 15 mg tablet 15 mg PO DAILY 03/21/24 03/25/24 History rivaroxaban 20 mg tablet (Xarelto) 20 mg PO QHS 03/21/24 03/20/24 History sitagliptin phosphate 50 1 tab PO BID 03/21/24 03/25/24 History mg-metformin 1,000 mg tablet (Janumet) tamsulosin 0.4 mg capsule 0.4 mg PO QHS 03/21/24 03/25/24 History ciprofloxacin HCl 500 mg tablet 500 mg PO BID #6 tabs 03/26/24 Unknown Rx (Cipro) ibuprofen 400 mg tablet 400 mg PO Q6H PRN fever or pain 03/26/24 Unknown Rx #20 tabs Allergy/AdvReac Type Severity Reaction Status Date / Time No Known Allergies Allergy Verified 03/28/24 05:51 Surgical History History of cardiac catheterization Hx of right cataract extraction Hx of left cataract extraction Hx of heart bypass surgery History of umbilical hernia repair Hx of cholecystectomy Social History Smoking Status: Former smoker Vital Signs Vital Signs Vital Signs: 03/28/24 05:46 03/28/24 07:45 03/28/24 07:52 Temperature 96.7 F L 97.6 F L 97.6 F L Temperature Source Temporal Temporal Pulse Rate 77 82 82 Respiratory Rate 16 16 18 Blood Pressure 161/44 H 132/47 H 132/47 H Blood Pressure Mean 83 75 75 Pulse Ox 98 92 93 Oxygen Delivery Method Room Air Room Air Weight Weight: 103.3 kg Body Mass Index (BMI) 31.7 Physical Exam Const alert and oriented x3 General Appearance: cooperative HEENT normocephalic and head/scalp atraumatic Eyes PERRL and EOMs intact bilaterally Neck supple, no JVD and no carotid bruits Resp normal respiratory effort, normal air movement and clear to auscultation bilaterally Cardio regular rate and no murmurs GI normal to inspection, nondistended, normoactive bowel sounds and soft to palpation Extremity normal capillary refill General Extremity: no tenderness to palpation of joints or extremities; Negative for edema Skin no rashes or lesions noted and no wounds General Skin Exam: no breakdown Neuro CN's II-XII intact bilaterally Psych affect normal Appearance: appropriate Results Lab / Micro Data 03/28/24 07:54 03/28/24 07:54 Labs: Laboratory Results - last 24 hr 03/28/24 07:54: WBC 14.3 H, RBC 3.20 L, Hgb 10.0 L, Hct 30.2 L, MCV 94.4 H, MCH 31.3, MCHC 33.1, RDW Std Deviation 42.0, RDW Coeff of Jessica 12.1, Plt Count 214, MPV 10.1, Immature Gran % (Auto) 0.600, Neut % (Auto) 88.5 H, Lymph % (Auto) 4.1 L, Burt % (Auto) 6.4, Eos % (Auto) 0.1, Baso % (Auto) 0.3, Absolute Neuts (auto) 12.7 H, Absolute Lymphs (auto) 0.59 L, Nucleated RBC % 0, Sodium 136, Potassium 4.5, Chloride 103, Carbon Dioxide 25.0, Anion Gap 8, BUN 33 H, Creatinine 1.74 H , Estim Creat Clear Calc 35.90, Est GFR (MDRD) Af Amer 48 L, Est GFR (MDRD) Non- Af 40 L, BUN/Creatinine Ratio 19.0, Glucose 209 H, Calcium 8.9 Assessment & Plan Assessment/Plan (1) Benign prostatic hyperplasia:
[2024-03-28] MEDS: 0.9% Normal Saline (1000mL) 1,000 ML 50 ML IV (08:57)
--- NOTE | 2024-03-28 09:12 | NURSING ---
[address] cornelius maintained with CBI, noted hematuria backing up into irrigation tubing. pt reports bladder pressure. discussed with primary RN. Manual irrigation completed evacuating multiple small to med size clots, noted improved output and improved color to light pink. new cath secure placed on patient's right thigh. continuous CBI continued. Primary RN remains bedside.
--- NOTE | 2024-03-28 09:17 | EKG12_ITS ---
Test Reason : PREOP Blood Pressure : / mmHG Vent. Rate : 085 BPM Atrial Rate : 000 BPM P-R Int : 000 ms QRS Dur : 088 ms QT Int : 390 ms P-R-T Axes : 000 -20 064 degrees QTc Int : 464 ms Atrial fibrillation Abnormal ECG No previous ECGs available Confirmed by BALDO COONEY, SUZIE ([id number]), content editor CITLALY DANG ([id number] on 04/01/2024 11:03:23 AM Referred By: Confirmed By:SUZIE BLAND MD
[2024-03-28 09:28] LABS: International Normalized Ratio 3.6; Prothrombin Time (Protime)PT. 35.7 SECONDS (11.7-14.9)
[2024-03-28 09:29] LABS: Partial Thromboplast Time 40.8 Seconds (24.1-36.2)
--- NOTE | 2024-03-28 10:25 | NURSING ---
Pt started having pain, Xiong was irrigated with 50cc of water and removed several small clots. Xiong running again and pt resting comfortably.
--- NOTE | 2024-03-28 11:16 | NURSING ---
Manually irrigated CBI and removed a large clot.
--- NOTE | 2024-03-28 14:29 | NURSING ---
Pt called out and said he was having pain in bladder, this RN tried to manually irrigate it and could not get the clots out. Called Charge nurse into room. After several times of manually irrigating it a large amt of clots removed. Xiong running now with bags [address] Verduzco was paged and informed of what was going on. He said to keep manually irrigating it and he will be up this evening after surgeries to see pt.
--- NOTE | 2024-03-28 16:53 | NURSING ---
JEWEL INSPECTOR got RN and informed me that the cornelius was not draining well and pt was having pain. Cornelius flushed again with 80ml of saline. Cornelius draining and pt has no pain at this time.
[2024-03-28] MEDS: metFORMIN HCl 1,000 MG Tablet 1000 MG PO (16:54)
--- NOTE | 2024-03-28 17:41 | NURSING ---
DR. Verduzco came in to see pt and replaced the old Xiong with a larger one, he irrigated it several times and removed several large clots. Per if he has any more clots ok to continue to irrigate it trough the evening. Pt now resting in bed comfortable.
[2024-03-28] MEDS: Lisinopril 40 MG Tablet PO (19:43)
[2024-03-28] MEDS: Tamsulosin HCl 0.4 MG Capsule PO (19:43)
[2024-03-28] MEDS: Ciprofloxacin 500 MG Tablet PO (19:43)
[2024-03-28] MEDS: Atorvastatin Calcium 80 MG Tablet PO (19:44)
[2024-03-29 02:36] VITALS: BP 115/44; PULSE 83; RESP 18; TEMP 37.2; O2SAT 97
[2024-03-29] MEDS: 0.9% Normal Saline (1000mL) 1,000 ML 50 ML IV (02:41)
[2024-03-29 05:02] VITALS: BP 152/40; PULSE 81; RESP 20; TEMP 37; O2SAT 98
[2024-03-29] MEDS: Acetaminophen 500 MG Tablet PO (06:07)
[2024-03-29 08:29] VITALS: BP 136/54; PULSE 56; RESP 16; TEMP 36.8; O2SAT 100
[2024-03-29] MEDS: hydroCHLOROthiazide 25 MG Tablet PO (09:28)
[2024-03-29] MEDS: amLODIPine 5 MG Tablet PO (09:28)
[2024-03-29] MEDS: Ciprofloxacin 500 MG Tablet PO (09:28)
[2024-03-29] MEDS: Finasteride 5 MG Tablet PO (09:28)
[2024-03-29] MEDS: Lisinopril 40 MG Tablet PO (09:28)
[2024-03-29 10:51] VITALS: BP 139/55; PULSE 82; RESP 16; TEMP 36.9; O2SAT 96
--- NOTE | 2024-03-29 12:00 | PCM.DC.SUM ---
Providers Date of Admission: 03/28/24 Date of Discharge: 03/29/24 Primary Care Physician: Dr. Keshav Hernández MD Reason For Visit: HEMATURIA Diagnosis Discharge Diagnosis (1) Benign prostatic hyperplasia: Status: Acute Code(s): N40.0 - Benign prostatic hyperplasia without lower urinary tract symptoms Medications at Discharge Home Medications amlodipine 5 mg tablet 5 mg PO DAILY 03/21/24 aspirin 81 mg tablet,delayed release (Adult Aspirin Regimen) 81 mg PO DAILY 03/21/24 atorvastatin 80 mg tablet 80 mg PO QHS 03/21/24 cyanocobalamin (vitamin B-12) 1,000 mcg tablet,extended release (Vitamin B-12 ER) 1,000 mcg PO DAILY 03/21/24 dutasteride 0.5 mg capsule 0.5 mg PO DAILY 03/21/24 glipizide 10 mg tablet 10 mg PO DAILY 03/21/24 hydrochlorothiazide 25 mg tablet 25 mg PO DAILY 03/21/24 lisinopril 40 mg tablet 40 mg PO BID 03/21/24 pioglitazone 15 mg tablet 15 mg PO DAILY 03/21/24 rivaroxaban 20 mg tablet (Xarelto) 20 mg PO QHS 03/21/24 sitagliptin phosphate 50 mg-metformin 1,000 mg tablet (Janumet) 1 tab PO BID 03/21/24 tamsulosin 0.4 mg capsule 0.4 mg PO QHS 03/21/24 ciprofloxacin HCl 500 mg tablet (Cipro) 500 mg PO BID #6 tabs 03/26/24 ibuprofen 400 mg tablet 400 mg PO Q6H PRN fever or pain #20 tabs 03/26/24 Hospital Course Operations None Procedures None Summary of Care Provided Minutes Spent on Discharge: 35 Hospital Course: 88-year-old male with of large bladder stone and BPH with obstruction he underwent cystoscopy laser bladder stone he went home with a Xiong catheter he was supposed to stop his aspirin and anticoagulation this was given to him on his discharge instructions also verbally told to do this with the patient had resumed his blood thinners and came back to the hospital significant bleeding. He was irrigated to clear this morning is clear there are some small old blood clots but when to remove the catheter for voiding trial as long as he can urinate today without much difficulty can go home today without a catheter he was given instructions to resume all his medications but again he was reminded that he should not take his blood thinners and aspirin for another week for the high risk of bleeding. He has an appointment to follow-up with me next week for checkup Physical Exam Const alert and oriented x3 General Appearance: cooperative HEENT normocephalic, head/scalp atraumatic, EAC's normal and TM's normal bilaterally Eyes PERRL and EOMs intact bilaterally Pupil: sluggish Neck no lymphadenopathy, supple and no JVD General: trachea midline Lymph Lymphatic: no lymphadenopathy noted, lymphedema and lymphadenopathy Resp normal respiratory effort, normal air movement and clear to auscultation bilaterally Cardio regular rate, regular rhythm and peripheral pulses 2+ throughout GI soft to palpation, non-tender and non-distended Extremity normal capillary refill and no clubbing, cyanosis or edema General Extremity: no tenderness to palpation of joints or extremities Skin no rashes or lesions noted General Skin Exam: turgor normal Lesions: no lesions Rashes: no rashes Neuro CN's II-XII intact bilaterally Speech: speech normal Motor Exam: strength 5/5 throughout; Negative for general weakness Psych thought process normal, cooperative and affect normal Appearance: appropriate Weight / BMI Weight Weight: 103.3 kg Body Mass Index (BMI) 31.7 ABG / Lab / Microbiology Data 03/28/24 07:54 03/28/24 07:54 Laboratory: Laboratory Results - last 24 hr 03/28/24 07:54: Hemoglobin A1c 7.0 H D/C Instructions Discharge Diet: No restrictions Discharge Activity: Return to Normal Activity Suture Line Care: Avoid Pulling/Pushing and Avoid Pinching/Bending Please Follow Up With: Gerald Verduzco MD When: Follow-up in the office Meaningful Use Info Meaningful Use Meaningful Use Diagnoses (Choose all that apply): None applicable Ischemic Stroke Statin Dosing Therapy Reference: STATIN DOSE THERAPY REFERENCE: * Patients > 75 years receive moderate or high dose statin therapy. * Patients 75 years or YOUNGER should receive HIGH intensity statin dose unless contraindicated. You will be required to document reason for non-treatment if statin daily dose does not meet guidelines. HIGH DOSE STATIN THERAPY DAILY Atorvastatin > than or = to 40 mg Rosuvastatin > than or = to 20 mg Amlodipine + Atorvastatin > than or = to 2.5/40 mg Ezetimibe + Simvastatin 10/80 mg Simvastatin 80mg Discharge Plan Admission Admit Date/Time: 03/28/24 08:40 Primary Reason for Your Visit: Bleeding after removal of bladder stones Attending Provider: Gerald Verduzco Primary Care Provider: Keshav Hernández Discharge Orders/Prescriptions Prescriptions: Continued amlodipine 5 mg tablet 5 mg PO DAILY atorvastatin 80 mg tablet 80 mg PO QHS glipizide 10 mg tablet 10 mg PO DAILY hydrochlorothiazide 25 mg tablet 25 mg PO DAILY lisinopril 40 mg tablet 40 mg PO BID pioglitazone 15 mg tablet 15 mg PO DAILY Janumet 50-1,000 mg tablet 1 tab PO BID cyanocobalamin (vitamin B-12) [Vitamin B-12] 1,000 mcg tablet extended release 1,000 mcg PO DAILY dutasteride 0.5 mg capsule 0.5 mg PO DAILY tamsulosin 0.4 mg capsule 0.4 mg PO QHS ciprofloxacin HCl [Cipro] 500 mg tablet 500 mg PO BID Qty: 6 0RF ibuprofen 400 mg tablet 400 mg PO Q6H PRN (Reason: fever or pain) Qty: 20 0RF Held Xarelto 20 mg tablet 20 mg PO QHS Hold Instructions: Resume on 04/05/24. aspirin [Adult Aspirin Regimen] 81 mg tablet,delayed release (DR/EC) 81 mg PO DAILY Hold Instructions: Resume on 04/05/24. Referrals / Follow Up: Keshav Hernández MD [Primary Care Provider] - Disposition Disposition (needs filled in before D/C Order can be placed): Home, Self Care
--- NOTE | 2024-03-29 12:06 | CASEMGMT ---
RN?CM?SHOE SALESPERSON?CM?to room to meet with patient for initial transition planning/care coordination?assessment.?RN?CM?introduced self and role at [facility].? Pt voices understanding and consents to?assessment?at this time.? Pt sitting on edge of bed in no distress at this time.? Pt is A/O at this time and answers all questions appropriately.?? Care providers, pharmacy, and demographics verified/updated at this time. PCP: Dr Hernández Specialists: Dr Verduzco-urologist. Pt also sees F can cleaner in [place], but does not remember his name. [facility] Insurance: [employer] [facility] Prescription Benefit:?yes Living Will/HPOA:?Has both LW and HCPOA, who is his daughter, Sandie Lyons LNOK: , Lazara. Dtr/HCPOA, Sandie. Living Arrangements: Lives w/his in one-story home w/walk-out basement and 2 steps to enter home w/railing on both sides. Pt denies difficulty w/stairs and states he is independent w/ADL's and manages his own medications/appts. and pt share home mngt tasks. Transportation:?Pt states drives self and states no transportation concerns at this time.? also drives. DME: Pt has a BP machine only. States does not use AD to ambulate. He denies having any DME needs. HHC/SNF: No hx of either and no needs identified. Pt wishes to return home and states has no concerns with going home at time of discharge.? PLAN:??Home Michael BSN?RN?CM
[2024-03-29 15:18] VITALS: BP 141/59; PULSE 73; RESP 16; TEMP 36.6; O2SAT 98
== END 2024-03-29 16:45 | disposition home or self-care (01) ==
LOC: ED 07:43 → MS3 07:49
PROVIDERS: Anesthesiology; Admitting Provider Urology; Emergency Provider Emergency Medicine; PCP Family Medicine; Visit Provider Urology
DX: R31.0 Gross hematuria (principal); E11.9 Type 2 diabetes mellitus without complications; T45.511A Poisoning by anticoagulants, accidental (unintentional), initial encounter; I10 Essential (primary) hypertension; I25.10 Atherosclerotic heart disease of native coronary artery without angina pectoris; E78.00 Pure hypercholesterolemia, unspecified; N40.1 Benign prostatic hyperplasia with lower urinary tract symptoms; Z79.01 Long term (current) use of anticoagulants; Z79.82 Long term (current) use of aspirin; Z79.899 Other long term (current) drug therapy; Z79.84 Long term (current) use of oral hypoglycemic drugs; Z95.1 Presence of aortocoronary bypass graft; Z87.891 Personal history of nicotine dependence; T83.091A Other mechanical complication of indwelling urethral catheter, initial encounter; Y73.1 Therapeutic (nonsurgical) and rehabilitative gastroenterology and urology devices associated with adverse incidents; N13.8 Other obstructive and reflux uropathy; T45.515A Adverse effect of anticoagulants, initial encounter
CPT/HCPCS: 80048; 81001; 82962; 83036; 85025; 85610; 85730; 93005; 99221; 99282; 99284; J7030; J7120; A4216; G0378; J2405